=== PATIENT | female | born 1995 | race Caucasian/White ===

== ENCOUNTER 2020-04-09 13:13 | Emergency (ER) | payer SELFPAY ==
[2020-04-09 13:20] VITALS: BP 134/71
--- NOTE | 2020-04-09 13:21 | ER Document Report ---
HPI - HPI Patient complains to provider of: Right foot pain Time Seen by Provider: 04/09/20 13:16 Onset: Yesterday Onset/Duration: Sudden Context: This 24-year-old female presents emergency room today after having someone stepped on her right foot when she stepped on it inverted Miki and twisted. She had pain since that event which was 11:00 last night. Associated Symptoms: None Exacerbated by: Denies Past Medical History - General Information source: Patient - Social History Smoking Status: Never Smoker Cigarette use (# per day): No Chew tobacco use (# tins/day): No Smoking Education Provided: No Frequency of alcohol use: None Family History: None Vertical Provider Document - CONSTITUTIONAL Agree With Documented VS: Yes - HEENT HEENT: Atraumatic, Conjuctival Injection, Normocephalic, PERRLA - NECK Neck: Normal Inspection - RESPIRATORY Respiratory: Breath Sounds Normal, No Respiratory Distress - CARDIOVASCULAR Cardiovascular: Regular Rate, Regular Rhythm - GI/ABDOMEN Gastrointestinal: Abdomen Soft, Abdomen Non-Tender - REPRODUCTIVE Female Genitalia: Normal Inspection - BACK Back: Normal Inspection - MUSCULOSKELETAL/EXTREMETIES Musculoskeletal/Extremeties: MAEW Course - Vital Signs Vital signs: Temp Pulse Resp BP Pulse Ox 98.5 F 85 18 134/71 H 99 04/09/20 13:18 04/09/20 13:18 04/09/20 13:18 04/09/20 13:18 04/09/20 13:18 - Diagnostic Test Radiology results interpreted by me: 04/09/20 13:51 Foot X-Ray 04/09/20 13:17 IMPRESSION: Nondisplaced fracture of the proximal 5th metatarsal base- tuberosity. Procedures - Immobilization Right Dorsal Foot Immobilizer type: Ankle stirrup Performed by: INDU Post-Proc Neuro Vasc Exam: Normal Alignment checked and good: Yes Discharge - Discharge Clinical Impression: Right foot strain Qualifiers: Encounter type: initial encounter Qualified Code(s): S96.911A - Strain of unspecified muscle and tendon at ankle and foot level, right foot, initial encounter Disposition: HOME, SELF-CARE Instructions: Tendon Strain ([facility]) Additional Instructions: Rest. Ice. Elevate. Compress. Must follow-up with Ortho as provided. Return to emergency room for any change worsening condition. Prescriptions: Tramadol HCl [Ultram 50 mg Tablet] 50 mg PO Q4HP PRN #30 tab PRN Reason: Naproxen Sodium [Naproxen Sodium ER] 500 mg PO Q12 PRN #20 tablet.sa PRN Reason:
--- NOTE | 2020-04-09 13:42 | RADIOLOGY REPORT (SQ) ---
EXAM DESCRIPTION: FOOT RIGHT COMPLETE IMAGES COMPLETED DATE/TIME: 04/09/2020 1:30 pm REASON FOR STUDY: pain COMPARISON: None. EXAM PARAMETERS: NUMBER OF VIEWS: Three views. TECHNIQUE: AP, lateral and oblique radiographic images acquired of the right foot. LIMITATIONS: None. FINDINGS: MINERALIZATION: Normal. BONES: Nondisplaced fracture of the proximal 5th metatarsal base- tuberosity. No dislocation. No w orrisome bone lesions. JOINTS: No effusion. SOFT TISSUES: No significant soft tissue swelling. No radiopaque foreign body. OTHER: No other significant finding. IMPRESSION: Nondisplaced fracture of the proximal 5th metatarsal base- tuberosity. TECHNICAL DOCUMENTATION: JOB ID: [id number] [id number] 2010 [employer]- All Rights Reserved Reading location - IP/workstation name: [email or web address]
== END 2020-04-09 14:02 | disposition home or self-care (01) ==
LOC: ER 13:13
DX: S96.911A Strain of unspecified muscle and tendon at ankle and foot level, right foot, initial encounter (principal); S92.354A Nondisplaced fracture of fifth metatarsal bone, right foot, initial encounter for closed fracture; W50.0XXA Accidental hit or strike by another person, initial encounter
CPT/HCPCS: 99283